=== PATIENT | female | born 2000 | race Two or more races ===

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

== ENCOUNTER 2018-08-03 14:50 | Emergency (ER) | payer OTHER ==
[2018-08-03 15:26] VITALS: BP 129/97
[2018-08-03] MEDS ORDERED: OXYCODONE-ACETAMINOPHEN 5-325 MG TABLET PO ONE (15:41)
[2018-08-03] MEDS ORDERED: IBUPROFEN 600 MG TABLET PO ONE (15:41)
--- NOTE | 2018-08-03 15:42 | ER Document Report ---
HPI - HPI Patient complains to provider of: Neck pain Time Seen by Provider: 08/03/18 15:27 Onset: This morning Onset/Duration: Sudden Quality of pain: Achy Pain Level: 5 Context: Patient states she was sitting in class and raise her arms up and stretched above her head and had a sudden onset of neck pain. Patient states since then she has had pain to the right side of the neck with any kind of lateral movement of her head. Patient denies any injury. Patient denies any fever. Associated Symptoms: Other - Right-sided neck pain. denies: Fever, Headache, Nausea, Vomiting Exacerbated by: Movement Relieved by: Denies Similar symptoms previously: No Recently seen / treated by doctor: No - ROS ROS below otherwise negative: Yes Systems Reviewed and Negative: Yes All other systems reviewed and negative - CONSTITUTIONAL Constitutional: DENIES: Fever - NEURO Neurology: DENIES: Headache, Weakness - RESPIRATORY Respiratory: DENIES: Coughing - GASTROINTESTINAL Gastrointestinal: DENIES: Nausea, Patient vomiting - REPRODUCTIVE Reproductive: DENIES: : - MUSCULOSKELETAL Musculoskeletal: REPORTS: Neck Pain. DENIES: Extremity pain, Back Pain - DERM Skin Color: Normal Skin Problems: None Past Medical History - General Information source: Patient - Social History Smoking Status: Never Smoker Frequency of alcohol use: None Drug Abuse: None Lives with: Family Family History: Reviewed & Not Pertinent - Medical History Medical History: Negative Renal/ Medical History: Denies: Hx Peritoneal Dialysis Past Surgical History: Reports: Hx Oral Surgery Vertical Provider Document - CONSTITUTIONAL Agree With Documented VS: Yes Exam Limitations: No Limitations General Appearance: WD/WN, No Apparent Distress - INFECTION CONTROL TRAVEL OUTSIDE OF THE [place] IN LAST 30 DAYS: No - HEENT HEENT: Atraumatic, Normocephalic - NECK Neck: negative: Lymphadenopathy-Left, Lymphadenopathy-Right Notes: pt holding head tilted towards the right for comfort, right lateral neck pain over SCM muscle increases with lateral rotation of head. No cervical midline tenderness, step off or deformity. - RESPIRATORY Respiratory: Breath Sounds Normal, No Respiratory Distress - CARDIOVASCULAR Cardiovascular: Regular Rate, Regular Rhythm - BACK Back: Abnormal Inspection - r trapezius muscle tenderness, spasm. negative: CVA Tenderness-Right, CVA Tenderness-Left - MUSCULOSKELETAL/EXTREMETIES Musculoskeletal/Extremeties: DARIANA ESTEBAN - NEURO Level of Consciousness: Awake, Alert, Appropriate Motor/Sensory: No Motor Deficit, No Sensory Deficit - DERM Integumentary: Warm, Dry, No Rash Course - Re-evaluation Re-evalutation: 08/03/18 Patient presents with right sided muscular neck pain, no midline tenderness step -off or deformity. No meningismus, no concern for meningitis. - Vital Signs Vital signs: Temp Pulse Resp BP Pulse Ox 97.8 F 66 16 129/97 H 96 08/03/18 15:25 08/03/18 15:25 08/03/18 15:25 08/03/18 15:25 08/03/18 15:25 Discharge - Discharge Clinical Impression: Cervical strain, acute Qualifiers: Encounter type: initial encounter Qualified Code(s): S16.1XXA - Strain of muscle, fascia and tendon at neck level, initial encounter Condition: Stable Disposition: HOME, SELF-CARE Instructions: Anti-Inflammatory Medication ([facility]), Muscle Relaxers ([facility]), Neck Injury (Cervical Strain) ([facility]) Additional Instructions: return as needed for any new or worsening symptoms follow up with a primary care provider for a recheck Referrals: [facility] [Provider Group] - Follow up as needed
== END 2018-08-03 16:01 | disposition home or self-care (01) ==
LOC: ER 14:50
DX: S16.1XXA Strain of muscle, fascia and tendon at neck level, initial encounter (principal); M54.2 Cervicalgia; X58.XXXA Exposure to other specified factors, initial encounter; M62.830 Muscle spasm of back
CPT/HCPCS: 99283

== ENCOUNTER 2019-03-08 15:31 | Emergency (ER) | payer OTHER ==
--- NOTE | 2019-03-08 16:28 | ER Document Report ---
ED Medical Screen (RME) - General Chief Complaint: Palpitations Stated Complaint: FAST HEART RATE/ANXIOUS TRAVEL OUTSIDE OF THE [place] IN LAST 30 DAYS: No - HPI Notes: 03/08/19 16:26 Patient is a 18-year-old female with a history of intermittent tachycardia since she was 14-15yo who presents complaining of having an episode of tachycardia about an hour and a half ago that lasted for 17 minutes. Patient states that it usually does not last that long and had some shortness of breath associated during that time. Patient states that her symptoms have since resolved. Patient states that she did have a brief episode of palpitations this past Wednesday as well. Patient states that the last time she had them was 2 years ago. She did see a gis web developer when she was a teenager and had a Holter monitor placed at that time. She does not take any medicines for this. Denies drug allergies. Patient does report flying in a plane couple days ago, but has not noticed any swelling, leg pain, or chest pains. Denies any recent roca rgery/trauma, personal cancer history, hormone use, smoking, or previous DVT/PE. Denies CHAVEZ, fever, neck pain, URI, CP, Abd pain, dysuria, back pain, or rash. I have treated and performed a rapid initial assessment of this patient. A comprehensive ED assessment and evaluation of the patient, analysis of test results and completion of medical decision making process will be conducted by additional ED providers. PHYSICAL EXAMINATION: GENERAL: Well-appearing, well-nourished and in no acute distress. A&Ox4. Answers questions appropriately. LUNGS: Breath sounds clear to auscultation bilaterally and equal. No wheezes rales or rhonchi. HEART: Regular rate and rhythm without murmurs, rubs, gallops. Extremities: No cyanosis, clubbing, or edema b/l. No lower extremity asymmetry. Ruperto negative bilaterally. NEUROLOGICAL: Normal speech, normal gait. PSYCH: Normal mood, normal affect. - Related Data Allergies/Adverse Reactions: No Known Allergies Allergy (Verified 08/03/18 15:57) Past Medical History - Social History Chew tobacco use (# tins/day): No Frequency of alcohol use: None Drug Abuse: None Renal/ Medical History: Denies: Hx Peritoneal Dialysis Past Surgical History: Reports: Hx Oral Surgery Physical Exam - Vital signs Vitals: Temp Pulse Resp BP Pulse Ox 97.6 F 108 H 16 112/73 95 03/08/19 15:49 03/08/19 15:49 03/08/19 15:49 03/08/19 15:49 03/08/19 15:49 Course - Vital Signs Vital signs: Temp Pulse Resp BP Pulse Ox 97.6 F 108 H 16 112/73 95 03/08/19 15:49 03/08/19 15:49 03/08/19 15:49 03/08/19 15:49 03/08/19 15:49
--- NOTE | 2019-03-08 16:50 | RADIOLOGY REPORT (SQ) ---
EXAM DESCRIPTION: CHEST 2 VIEWS COMPLETED DATE/TIME: 03/08/2019 4:43 pm REASON FOR STUDY: palpitations COMPARISON: 06/09/2017 two-view chest EXAM PARAMETERS: NUMBER OF VIEWS: two views TECHNIQUE: Digital Frontal and Lateral radiographic views of the chest acquired. RADIATION DOSE: NA LIMITATIONS: none FINDINGS: LUNGS AND PLEURA: No opacities, masses or pneumothorax. No pleural effusion. MEDIASTINUM AND HILAR STRUCTURES: No masses or contour abnormalities. HEART AND VASCULAR STRUCTURES: Heart normal size. No evidence for failure. BONES: No acute findings. HARDWARE: None in the chest. OTHER: No other significant finding. IMPRESSION: NO ACUTE RADIOGRAPHIC FINDING IN THE CHEST. TECHNICAL DOCUMENTATION: JOB ID: [id number] [employer]- All Rights Reserved Reading location - IP/workstation name: [email or web address]
[2019-03-08 17:27] LABS: ABSOLUTE EOSINOPHILS # (AUTO) 0.3 10^3/uL (0.0-0.6); ABSOLUTE LYMPHOCYTES (AUTO) 1.8 10^3/uL (0.5-4.7); ABSOLUTE MONOCYTES (AUTO) 0.6 10^3/uL (0.1-1.4); ABSOLUTE NEUT (AUTO) 5.1 10^3/uL (1.7-8.2); BASOPHILS % (AUTO) 0.3 % (0-2); EOSINOPHILS % (AUTO) 3.8 % (0-6); HEMATOCRIT 43.6 % (36.0-47.0); HEMOGLOBIN 14.9 g/dL (12.0-15.5); LYMPHOCYTES % (AUTO) 22.8 % (13-45); MEAN CORPUSCULAR HGB CONC 34.2 g/dL (32.0-36.0); MEAN CORPUSCULAR VOLUME 85 fl (80-97); MONOCYTES % (AUTO) 7.4 % (3-13); PLATELET COUNT 328 10^3/uL (150-450); RED BLOOD COUNT 5.14 10^6/uL (3.72-5.28); RED CELL DISTRIBUTION WIDTH 12.8 % (11.5-14.0); SEGMENTED NEUTROPHILS % (AUTO) 65.7 % (42-78); TOTAL CELLS COUNTED % (AUTO) 100 %; WHITE BLOOD COUNT 7.8 10^3/uL (4.0-10.5)
[2019-03-08 17:51] LABS: ALANINE AMINOTRANSFERASE 20 U/L (9-52); ALBUMIN 4.8 g/dL (3.5-5.0); ALKALINE PHOSPHATASE 55 U/L (38-126); ANION GAP 11 (5-19); ASPARTATE AMINO TRANSFERASE 23 U/L (14-36); BILIRUBIN,DIRECT 0.2 mg/dL (0.0-0.4); BILIRUBIN,TOTAL 1.2 mg/dL (0.2-1.3); BLOOD UREA NITROGEN 12 mg/dL (7-20); CALCIUM 9.9 mg/dL (8.4-10.2); CARBON DIOXIDE 28 mmol/L (22-30); CHLORIDE 103 mmol/L (98-107); GLUCOSE 84 mg/dL (75-110); PHOSPHORUS 4.6 mg/dL (2.5-4.5); POTASSIUM 4.2 mmol/L (3.6-5.0)
--- NOTE | 2019-03-08 17:53 | EKG REPORT ---
SEVERITY:- OTHERWISE NORMAL ECG - SINUS RHYTHM BORDERLINE RIGHT AXIS DEVIATION : Confirmed by: Rick Doran 08-Mar-2019 17:52:34
--- NOTE | 2019-03-08 18:44 | ER Document Report ---
HPI - HPI Time Seen by Provider: 03/08/19 16:28 Pain Level: 0 Notes: Patient is a 18-year-old female with a history of intermittent tachycardia since she was 14-15yo who presents complaining of having an episode of tachycardia about an hour and a half ago that lasted for 17 minutes. Patient states that it usually does not last that long and had some shortness of breath associated during that time. Patient states that her symptoms have since resolved. Patient states that she did have a brief episode of palpitations this past Wednesday as well. Patient states that the last time she had them was 2 years ago. She did see a plate put in worker when she was a teenager and had a Holter monitor placed at that time. She does not take any medicines for this. Denies drug allergies. Patient does report flying in a plane couple days ago, but has not noticed any swelling, leg pain, or chest pains. Denies any recent surgery/trauma, personal cancer history, hormone use, smoking, or previous DVT/PE. Denies any headache, fever, neck pain, changes in vision/speech/menta tion/hearing, URI, sore throat, chest pain, syncope, cough, shortness of breath, wheeze, dyspnea, abdominal pain, nausea/vomiting/diarrhea, urinary retention, dysuria, hematuria, loss of control of bowel or bladder, numbness/tingling, muscle paralysis/weakness, or rash. - ROS Systems Reviewed and Negative: Yes All other systems reviewed and negative - REPRODUCTIVE Reproductive: DENIES: : - DERM Skin Color: Normal, [place] Past Medical History - Social History Smoking Status: Never Smoker Chew tobacco use (# tins/day): No Frequency of alcohol use: None Drug Abuse: None Family History: Reviewed & Not Pertinent Patient has suicidal ideation: No Patient has homicidal ideation: No Renal/ Medical History: Denies: Hx Peritoneal Dialysis Past Surgical History: Reports: Hx Oral Surgery Vertical Provider Document - CONSTITUTIONAL Agree With Documented VS: Yes Notes: PHYSICAL EXAMINATION: GENERAL: Well-appearing, well-nourished and in no acute distress. HEAD: Atraumatic, normocephalic. EYES: Pupils equal round and reactive to light, extraocular movements intact, sclera anicteric, conjunctiva are normal. ENT: Nares patent and without discharge. oropharynx clear without exudates. No tonsilar hypertrophy or erythema. Moist mucous membranes. NECK: Normal range of motion, supple without lymphadenopathy LUNGS: Breath sounds clear to auscultation bilaterally and equal. No wheezes rales or rhonchi. HEART: Regular rate and rhythm without murmurs, rubs, gallops. ABDOMEN: Soft, nontender, nondistended abdomen. No guarding, no rebound. Normal bowel sounds present. No CVA tenderness bilaterally. Musculoskeletal: FROM to passive/active. Strength 5+/5. Ruperto neg. No asymmetry to LE's. Extremities: No cyanosis, clubbing, or edema b/l. Peripheral pulses 2+. Capillary refill less than 3 seconds. NEUROLOGICAL: Normal speech, normal gait. PSYCH: Normal mood, normal affect. SKIN: Warm, Dry, normal turgor, no rashes or lesions noted. - INFECTION CONTROL TRAVEL OUTSIDE OF THE [place] IN LAST 30 DAYS: No Course - Re-evaluation Re-evalutation: 03/08/19 Patient is an afebrile, well-hydrated, 18-year-old female who presents with palpitations earlier today that have since resolved. Vitals are acceptable without significant tachycardia, tachypnea, or hypoxia. PE is otherwise unrema rkable. Patient is nontoxic-appearing and is tolerating p.o. without difficulty. Patient has had chronic recurrent history of palpitations which has been previously evaluated by other facilities as well as cardiology in the past. Patient states that she is feeling normal and has been throughout her stay. Her labs are unremarkable for any acute pathology. EKG and chest x-ray also unremarkable. Pt was noted to have a HR of 108 upon arrival, but EKG and repeat exams reveal she has not been tachycardic and is otherwise PERC negative. [place] 0. She has not had any recurrence of her symptoms. She has not had any shortness of breath, dyspnea on exertion, or chest pain. Low suspicion for any ACS, PE, pneumothorax, pericarditis, dissection, respiratory compromise, severe dehydration, sepsis, meningitis, A. fib, WPW, or other systemic emergent condition at this time. Patient is aware that her condition can change from initial presentation and she needs to monitor symptoms closely and seek medical attention for any acute changes. Recommend conservative measures for symptoms. Recheck with your PCM in 3-5 days. Schedule appointment with cardiology. Return to the ED with any worsening/concerning symptoms otherwise as reviewed in discharge. Patient is in agreement. - Vital Signs Vital signs: Temp Pulse Resp BP Pulse Ox 97.6 F 108 H 16 112/73 95 03/08/19 15:49 03/08/19 15:49 03/08/19 15:49 03/08/19 15:49 03/08/19 15:49 - Laboratory Result Diagrams: 03/08/19 17:00 03/08/19 17:00 Laboratory results interpreted by me: 03/08/19 17:00 Phosphorus 4.6 H Discharge - Discharge Clinical Impression: Palpitations Condition: Stable Disposition: HOME, SELF-CARE Additional Instructions: Maintain adequate fluid and food intake Take home medications as directed Healthy diet Monitor blood pressure/heart rate daily and keep a log Monitor symptoms for any acute changes Recheck with your PCM in 3-5 days schedule an appointment with cardiology for further evaluation and management Return to the ED with any worsening symptoms and/or development of fever, headache, chest pain, palpitations, syncope, shortness of breath, trouble breathing, abdominal pain, n/v/d, blood in stool/urine, loss of control of bowel/bladder, urinary retention, muscle weakness/paralysis, numbness/tingling, or other worsening symptoms that are concerning to you. Referrals: PASTORA OCHOA MD [ACTIVE STAFF] - Follow up as needed
[2019-03-08 19:43] LABS: APPEARANCE,URINE SLIGHTLY-CLOUDY; BILIRUBIN,URINE NEGATIVE (NEGATIVE); COLOR,URINE YELLOW; GLUCOSE, URINE NEGATIVE (NEGATIVE); KETONES,URINE NEGATIVE (NEGATIVE); LEUKOCYTE ESTERASE,URINE NEGATIVE (NEGATIVE); NITRITE,URINE NEGATIVE (NEGATIVE); PROTEIN,URINE NEGATIVE (NEGATIVE); URINE SPECIFIC GRAVITY 1.006; UROBILINOGEN,URINE NEGATIVE mg/dL (<2.0)
[2019-03-08 19:55] VITALS: BP 104/73
== END 2019-03-08 19:59 | disposition home or self-care (01) ==
LOC: ER 15:31
DX: R00.2 Palpitations (principal); R06.02 Shortness of breath
CPT/HCPCS: 36415; 71046; 80053; 81001; 81025; 83735; 84100; 84443; 85025; 93005; 93010; 99285

== ENCOUNTER 2019-04-11 03:23 | Emergency (ER) | payer OTHER ==
--- NOTE | 2019-04-11 08:32 | RADIOLOGY REPORT (SQ) ---
EXAM DESCRIPTION: CHEST 2 VIEWS COMPLETED DATE/TIME: 04/11/2019 7:03 am REASON FOR STUDY: shortness of breath COMPARISON: 03/08/2019, 06/09/2017 EXAM PARAMETERS: NUMBER OF VIEWS: two views TECHNIQUE: Digital Frontal and Lateral radiographic views of the chest acquired. RADIATION DOSE: NA LIMITATIONS: none FINDINGS: LUNGS AND PLEURA: No opacities, masses or pneumothorax. No pleural effusion. MEDIASTINUM AND HILAR STRUCTURES: No masses or contour abnormalities. HEART AND VASCULAR STRUCTURES: Heart normal size. No evidence for failure. BONES: No acute findings. HARDWARE: None in the chest. OTHER: No other significant finding. IMPRESSION: NO ACUTE RADIOGRAPHIC FINDING IN THE CHEST. TECHNICAL DOCUMENTATION: JOB ID: [id number] [employer]- All Rights Reserved Reading location - IP/workstation name: [email or web address]
--- NOTE | 2019-04-11 08:35 | ER Document Report ---
ED General - General Chief Complaint: Chest Pain Stated Complaint: CHEST PAIN Time Seen by Provider: 04/11/19 08:33 Primary Care Provider: FENG CANCINO MD [ACTIVE STAFF] - Follow up in 3-5 days (for primary care) TRAVEL OUTSIDE OF THE [place] IN LAST 30 DAYS: No - HPI Notes: 18-year-old female to the emergency department with complaints of midsternal chest pain and shortness of breath that began last night at 9 PM as she was lying down for bed. She states that she feels like something is stuck in her chest. She denies any vomiting, sweating, dizziness. She states that she just recently started a new control and she thought maybe it was related to that so she has stopped. She had about 4 tablets of her control. She denies any leg pain, swelling. She denies any recent travel. Denies any palpitations. She does not smoke. She is not diabetic, hypertensive, or hyperlipidemic. She denies any family history of acute coronary syndrome. She states that last night she had meat and potato soup which was tomato based. Denies any history of clots. - Related Data Allergies/Adverse Reactions: No Known Allergies Allergy (Verified 08/03/18 15:57) Past Medical History - General Information source: Patient - Social History Smoking Status: Never Smoker Frequency of alcohol use: None Drug Abuse: None Family History: Reviewed & Not Pertinent Patient has suicidal ideation: No Patient has homicidal ideation: No Renal/ Medical History: Denies: Hx Peritoneal Dialysis Past Surgical History: Reports: Hx Oral Surgery Review of Systems - Review of Systems Constitutional: denies: Chills, Fever EENT: No symptoms reported Cardiovascular: Chest pain. denies: Palpitations, Orthopnea, Dyspnea, Syncope, Dizziness, Lightheaded Respiratory: Short of breath. denies: Cough Gastrointestinal: Nausea. denies: Abdominal pain, Diarrhea, Vomiting Genitourinary: No symptoms reported Female Genitourinary: No symptoms reported Musculoskeletal: No symptoms reported Skin: No symptoms reported Hematologic/Lymphatic: No symptoms reported Neurological/Psychological: No symptoms reported Physical Exam - Vital signs Vitals: Temp Pulse Resp BP Pulse Ox 98.7 F 77 18 114/95 H 97 04/11/19 03:48 04/11/19 03:48 04/11/19 03:48 04/11/19 03:48 04/11/19 03:48 Interpretation: Normal - General General appearance: Appears well, Alert - HEENT Head: Normocephalic, Atraumatic Eyes: Normal Pupils: PERRL - Respiratory Respiratory status: No respiratory distress Chest status: Nontender Breath sounds: Normal Chest palpation: Normal - Cardiovascular Rhythm: Regular Heart sounds: Normal auscultation Murmur: No - Abdominal Inspection: Normal Distension: No distension Bowel sounds: Normal Tenderness: Nontender Organomegaly: No organomegaly - Back Back: Normal, Nontender - Extremities General upper extremity: Normal inspection, Nontender, Normal ROM General lower extremity: Normal inspection, Nontender, Normal strength, Normal temperature. No: Ruperto's sign - Neurological Neuro grossly intact: Yes Cognition: Normal Orientation: AAOx4 Magdaleno Coma Scale Eye Opening: Spontaneous Magdaleno Coma Scale Verbal: Oriented Magdaleno Coma Scale Motor: Obeys Commands Magdaleno Coma Scale Total: 15 Speech: Normal Motor strength normal: LUE, RUE, LLE, RLE Sensory: Normal - Psychological Associated symptoms: Normal affect, Normal mood - Skin Skin Temperature: Warm Skin Moisture: Dry Skin Color: Normal Course - Re-evaluation Re-evalutation: 04/11/19 Patient has done well in the emergency department today. Chest pain has resolved since GI cocktail. She is not tachycardic, hypoxic, hypotensive, tachypneic. She cannot rule out for PERC score because she has recently been taking oral contraceptives. The is a low Wells criteria for PE. Also noted that her d-dimer is within normal limits. Doubt that this is chest pain related to a pulmonary embolism. Low suspicion for ACS. Her heart score is 0. She feels better after GI cocktail so high suspicion for reflux picture. Will discharge home and have her follow-up with primary care. Encouraged to return if any worsening symptoms such as fever, shortness of breath, worsening chest pain, abdominal pain, nausea, vomiting, diarrhea, diaphoresis. Patient agrees with the plan - Vital Signs Vital signs: Temp Pulse Resp BP Pulse Ox 98.2 F 77 19 134/82 H 97 04/11/19 11:12 04/11/19 03:48 04/11/19 11:01 04/11/19 11:00 04/11/19 11:01 - Laboratory Result Diagrams: 04/11/19 09:45 04/11/19 09:45 - Diagnostic Test Radiology reviewed: Image reviewed, Reports reviewed Radiology results interpreted by me: 04/11/19 11:34 Chest X-Ray 04/11/19 04:56 IMPRESSION: NO ACUTE RADIOGRAPHIC FINDING IN THE CHEST. - EKG Interpretation by Me EKG shows normal: Sinus rhythm Rate: Normal Rhythm: NSR When compared to previous EKG there are: No significant change Additional EKG results interpreted by me: 04/11/19 09:41 No STEMI no T wave changes, no significant change from prior Discharge - Discharge Clinical Impression: Chest pain Qualifiers: Chest pain type: unspecified Qualified Code(s): R07.9 - Chest pain, unspecified Acid reflux Qualifiers: Esophagitis presence: without esophagitis Qualified Code(s): K21.9 - Gastro- esophageal reflux disease without esophagitis Disposition: HOME, SELF-CARE Instructions: Reflux Disease (GERD) ([facility]) Additional Instructions: AVOID ACIDIC FOODS. WAIT TWO HOURS AFTER EATING TO LAY DOWN. RETURN IF WORSENING PAIN, SHORTNESS OF BREATH, HEADACHE, FEVERS. PUSH FLUIDS. TAKE MEDICINES PRESCRIBED. Prescriptions: Famotidine [Pepcid 20 mg Tablet] 20 mg PO BID #20 tablet Referrals: FENG CANCINO MD [ACTIVE STAFF] - Follow up in 3-5 days (for primary care)
[2019-04-11] MEDS ORDERED: MAG HYDROX/AL HYDROX/SIMETH SUSP 30 ML UDCUP PO ONE (09:30)
[2019-04-11] MEDS ORDERED: LIDOCAINE 2% VISCOUS SOLN 20 ML UDCUP PO ONE (09:30)
[2019-04-11 10:07] LABS: ABSOLUTE EOSINOPHILS # (AUTO) 0.1 10^3/uL (0.0-0.6); ABSOLUTE LYMPHOCYTES (AUTO) 1.5 10^3/uL (0.5-4.7); ABSOLUTE MONOCYTES (AUTO) 0.3 10^3/uL (0.1-1.4); ABSOLUTE NEUT (AUTO) 3.6 10^3/uL (1.7-8.2); BASOPHILS % (AUTO) 0.4 % (0-2); EOSINOPHILS % (AUTO) 2.1 % (0-6); HEMATOCRIT 39.5 % (36.0-47.0); HEMOGLOBIN 13.7 g/dL (12.0-15.5); LYMPHOCYTES % (AUTO) 26.8 % (13-45); MEAN CORPUSCULAR HEMOGLOBIN 29.3 pg (27.0-33.4); MEAN CORPUSCULAR HGB CONC 34.6 g/dL (32.0-36.0); MEAN CORPUSCULAR VOLUME 85 fl (80-97); MONOCYTES % (AUTO) 5.6 % (3-13); PLATELET COUNT 276 10^3/uL (150-450); RED BLOOD COUNT 4.68 10^6/uL (3.72-5.28); RED CELL DISTRIBUTION WIDTH 12.9 % (11.5-14.0); SEGMENTED NEUTROPHILS % (AUTO) 65.1 % (42-78); TOTAL CELLS COUNTED % (AUTO) 100 %; WHITE BLOOD COUNT 5.5 10^3/uL (4.0-10.5)
[2019-04-11 10:25] LABS: ANION GAP 10 (5-19); BLOOD UREA NITROGEN 15 mg/dL (7-20); CALCIUM 9.6 mg/dL (8.4-10.2); CARBON DIOXIDE 23 mmol/L (22-30); CHLORIDE 104 mmol/L (98-107); GLUCOSE 87 mg/dL (75-110)
[2019-04-11 11:07] VITALS: BP 134/82
--- NOTE | 2019-04-12 07:26 | EKG REPORT ---
SEVERITY:- OTHERWISE NORMAL ECG - SINUS RHYTHM BORDERLINE RIGHT AXIS DEVIATION : Confirmed by: Bhargav Landrum MD 12-Apr-2019 07:26:09
== END 2019-04-11 11:13 | disposition home or self-care (01) ==
LOC: ER 03:23
DX: K21.9 Gastro-esophageal reflux disease without esophagitis (principal); R07.9 Chest pain, unspecified; R06.02 Shortness of breath; R11.0 Nausea
CPT/HCPCS: 93005; 99285; 36415; 84703; 85025; 80048; 85379; 71046; 93010; J3490